=== PATIENT | male | born 1995 | race Caucasian/White ===

== ENCOUNTER 2023-07-15 15:54 | Emergency (ER) | payer BC, SELFPAY ==
--- NOTE | 2023-07-15 16:15 | ER ---
Nurse's Notes [facility] Name: Darvin Arriola III Age: 28 yrs Sex: Male : 1995 Arrival Date: 07/15/2023 Time: 15:54 Bed 12 Private MD: Diagnosis: Low back pain Presentation: 07/15 16:10 Chief complaint: Patient states: back pain since Friday evening. Coronavirus screen: At iw this time, the client does not indicate any symptoms associated with coronavirus-19. Ebola Screen: Patient negative for fever greater than or equal to 101.5 degrees Fahrenheit, and additional compatible Ebola Virus Disease symptoms Patient denies exposure to infectious person. Patient denies travel to an Ebola-affected area in the 21 days before illness onset. No symptoms or risks identified at this time. Initial Sepsis Screen: Does the patient meet any 2 criteria? No. Patient's initial sepsis screen is negative. Does the patient have a suspected source of infection? No. Patient's initial sepsis screen is negative. Risk Assessment: Do you want to hurt yourself or someone else? Patient reports no desire to harm self or others. Onset of symptoms was July 13, 2023. 16:10 Method Of Arrival: Ambulatory iw 16:10 Acuity: RICHARD 4 iw Historical: - Allergies: 16:13 PENICILLINS; iw 16:13 Augmentin; iw - PMHx: 16:14 Depressive disorder; iw - Immunization history:: Adult Immunizations unknown. - Social history:: Smoking status: unknown. Assessment: 17:00 General: Appears in no apparent distress. uncomfortable, Behavior is calm, cooperative, jl7 appropriate for age. Pain: Complains of pain in lumbar area. Neuro: Level of Consciousness is awake, alert, obeys commands, Oriented to person, place, time, situation, Gait is steady. Cardiovascular: Patient's skin is warm and dry. Respiratory: Airway is patent Respiratory effort is even, unlabored, Respiratory pattern is regular, symmetrical. Derm: Skin is pink, warm \T\ dry. Musculoskeletal: Swelling absent. Vital Signs: 16:12 BP 125 / 85; Pulse 86; Resp 16; Temp 98.4; Pulse Ox 97% on R/A; iw 17:07 Weight 99.79 kg; jl7 ED Course: 15:56 Patient arrived in ED. rg4 15:59 Yolis Price FNP-C [facility]. kb 15:59 Stevie Morris DO is Attending Physician. kb 16:12 Triage completed. iw 16:12 Arm band placed on. iw 17:00 Patient has correct armband on for positive identification. jl7 17:07 Jacek Buenrostro, RN is Primary Nurse. jl7 17:19 No provider procedures requiring assistance completed. Patient did not have IV access jl7 during this emergency room visit. Administered Medications: 17:15 Drug: Dexamethasone IM 10 mg Route: IM; Site: left deltoid; jl7 17:18 Follow up: Response: Medication administered at discharge. jl7 17:15 Drug: Ketorolac IM 30 mg Route: IM; Site: right deltoid; jl7 17:18 Follow up: Response: Medication administered at discharge. jl7 17:15 Drug: [place] PO 10 mg-325 mg 1 tabs Route: PO; jl7 17:18 Follow up: Response: Medication administered at discharge. jl7 Medication: 17:00 VIS not applicable for this client. jl7 Outcome: 16:15 Discharge ordered by MD. kb 17:19 Discharged to home ambulatory. jl7 17:19 Condition: stable 17:19 Discharge instructions given to patient, Instructed on discharge instructions, follow up and referral plans. medication usage, Demonstrated understanding of instructions, follow-up care, medications, Prescriptions given X 3. 17:19 Patient left the ED. jl7 Signatures: Yolis Price FNP-C FNP-Janice West, RN Fina Bowser rg4 Jacek Buenrostro, MARITA RN jl7
--- NOTE | 2023-07-15 16:16 | EDPHYS ---
Physician Documentation [facility] Name: Darvin Arriola III Age: 28 yrs Sex: Male : 1995 Arrival Date: 07/15/2023 Time: 15:54 Bed 12 Private MD: ED Physician Stevie Morris HPI: 07/15 16:14 This 28 yrs old Male presents to ER via Ambulatory with complaints of Back Pain. kb 16:10 Low back pain for 3 days after moving. States he was moving furniture and felt the pain kb come on when going up the stairs. Reports pain is worse with changing positions. Denies numbness or tingling. Reports pain is to center of lower back, lumbar area, and radiates to right buttock and posterior thigh. . 16:14 The patient presents with pain that is acute. The symptoms are located in the low back. kb Onset: The symptoms/episode began/occurred 3 day(s) ago. The pain radiates. Associated signs and symptoms: Pertinent positives:. The problem was sustained when lifting. Modifying factors: The patient symptoms are alleviated by nothing, the patient symptoms are aggravated by any movement. Severity of symptoms: At their worst the symptoms were moderate, in the emergency department the symptoms are unchanged. The patient has not experienced similar symptoms in the past. The patient has not recently seen a physician. Historical: - Allergies: 16:13 PENICILLINS; iw 16:13 Augmentin; iw - PMHx: 16:14 Depressive disorder; iw - Immunization history:: Adult Immunizations unknown. - Social history:: Smoking status: unknown. ROS: 16:10 Constitutional: Negative for fever, chills, and weight loss. kb 16:10 Back: Positive for pain with movement. 16:10 All other systems are negative. Exam: 16:10 Constitutional: This is a well developed, well nourished patient who is awake, alert, kb and in no acute distress. Head/Face: Normocephalic, atraumatic. ENT: Moist Mucous membranes Cardiovascular: Regular rate and rhythm with a normal S1 and S2. No gallops, murmurs, or rubs. No pulse deficits. Respiratory: Respirations even and unlabored. No increased work of breathing. Talking in full sentences Abdomen/GI: Soft, non-tender. No distention Skin: Warm, dry with normal turgor. Normal color. MS/ Extremity: Pulses equal, no cyanosis. Neurovascular intact. Full, normal range of motion. Neuro: Awake and alert, GCS 15, oriented to person, place, time, and situation. Moves all extremities. Normal gait. 16:10 Back: pain, that is moderate, of the lumbar area, ROM is painful, normal spinal alignment noted, CVA tenderness, is absent. Vital Signs: 16:12 BP 125 / 85; Pulse 86; Resp 16; Temp 98.4; Pulse Ox 97% on R/A; iw 17:07 Weight 99.79 kg; jl7 MDM: 16:10 Patient medically screened. kb 16:10 Differential diagnosis: ruptured disc, sprain, vertebral fracture, hernitated disc. kb Data reviewed: vital signs, nurses notes. Test considered but Not performed: X-ray: x-ray lumbar spine considered, but pt had no traumatic injury. Plan of care would not change on outcome of x-ray. Counseling: I had a detailed discussion with the patient and/or guardian regarding the historical points, exam findings, and any diagnostic results supporting the discharge/admit diagnosis, the need for outpatient follow up, a family practitioner, to return to the emergency department if symptoms worsen or persist or if there are any questions or concerns that arise at home. Administered Medications: 17:15 Drug: Dexamethasone IM 10 mg Route: IM; Site: left deltoid; jl7 17:18 Follow up: Response: Medication administered at discharge. jl7 17:15 Drug: Ketorolac IM 30 mg Route: IM; Site: right deltoid; jl7 17:18 Follow up: Response: Medication administered at discharge. jl7 17:15 Drug: [place] PO 10 mg-325 mg 1 tabs Route: PO; jl7 17:18 Follow up: Response: Medication administered at discharge. jl7 Disposition: 17:41 Co-signature as Attending Physician, Stevie LACKEY was immediately available on-site ms3 in the Emergency Department for consultation in the care of the patient. Disposition Summary: 07/15/23 16:15 Discharge Ordered Location: Home kb Condition: Stable kb Diagnosis - Low back pain kb Followup: kb - With: Emergency Department - When: As needed - Reason: Worsening of condition Followup: kb - With: Private Physician - When: 2 - 3 days - Reason: Recheck today's complaints, Continuance of care, Re-evaluation by your physician Discharge Instructions: - Discharge Summary Sheet kb - Acute Back Pain, Adult kb - Musculoskeletal Pain kb Forms: - Medication Reconciliation Form kb - Thank You Letter kb - Antibiotic Education kb - Prescription Opioid Use kb - Patient Portal Instructions kb - Leadership Thank You Letter kb - Work release form jl7 Prescriptions: - Ibuprofen 800 mg Oral Tablet - take 1 tablet by ORAL route every 8 hours As needed take with food; 30 tablet; kb Refills: 0, Product Selection Permitted - Prednisone 20 mg Oral Tablet - take 1 tablet by ORAL route once daily for 5 days; 5 tablet; Refills: 0, kb Product Selection Permitted - orphenadrine citrate 100 mg Oral Tablet Sustained Release - take 1 tablet by ORAL route 2 times per day As needed; 20 tablet; Refills: 0, kb Product Selection Permitted Signatures: Yolis Price, [employer] DEVELOPER-Janice West RN RN iw Jacek Buenrostro RN RN jl7 Stevie Morris DO DO ms3
[2023-07-15] MEDS ORDERED: HYDROCODONE/APAP 10/325 TAB ONE (17:19)
[2023-07-15] MEDS ORDERED: dexAMETHasone 10 MG/ML VIAL ONE (17:19)
[2023-07-15] MEDS ORDERED: KETOROLAC 30 MG/ML INJ ONE (17:19)
[2023-07-15 17:39] VITALS: BP 125/85; TEMP 98.4; O2SAT 97
== END 2023-07-15 17:19 | disposition home or self-care (01) ==
LOC: ER 15:54
DX: M54.50 Low back pain, unspecified (principal); Z88.0 Allergy status to penicillin; Z88.1 Allergy status to other antibiotic agents
CPT/HCPCS: J1100

== ENCOUNTER 2025-01-17 06:16 | Emergency (ER) | payer BC, SELFPAY ==
[2025-01-17] MEDS ORDERED: ONDANSETRON 4 MG/2 ML VIAL ONE (06:53)
[2025-01-17] MEDS ORDERED: NA CHLORIDE 0.9% 1,000 ML ONE (06:54)
[2025-01-17 07:07] LABS: Absolute Basophils 0.1 K/uL (0-0.5); Absolute Eosinophils 0.3 K/uL (0-0.5); Absolute Lymphocytes (CBC) 3.7 K/uL (0.7-4.9); Absolute Neutrophil 5.6 K/uL (1.8-8.0); Basophils % 0.7 % (0-1.3); Hematocrit 45.4 % (39.6-49.0); Hemoglobin 15.5 g/dL (13.6-17.9); Lymphocytes % 34.4 % (15.3-44.8); MCH 29.1 pg (27.0-35.0); MCHC 34.1 g/dL (32.0-36.0); MCV 85.3 fL (80-100); MPV 7.7 fL (7.6-11.3); Monocytes % 9.6 % (3.3-12.3); Neutrophils % 52.3 % (41.7-73.7); Nucleated Red Blood Cells % 0.1 % (0-0); Platelets 371 thou/uL (152-406); RBC Red Blood Cell Count 5.33 M/uL (4.33-5.43); Red Cell Distribution Width 13.4 % (12.1-15.2)
[2025-01-17 07:29] LABS: Albumin 3.7 g/dL (3.4-5.0); Anion Gap 7.6 mEq/L (5.0-15.0); Bilirubin Total 0.4 mg/dL (0.2-1.0); Globulin 3.8 g/dL (2.3-3.5); Potassium 3.6 mEq/L (3.5-5.1); Protein, Total 7.5 g/dL (6.4-8.2)
--- NOTE | 2025-01-17 07:44 | RAD REPORT ---
EXAMINATION: CT ABDOMEN AND PELVIS WITH CONTRAST CLINICAL INDICATION: ABD PAIN TECHNIQUE: CT abdomen and pelvis was performed, after the administration of IV contrast, as per [facility] protocol. Axial, sagittal and coronal reconstructions were obtained. One or more of the following dose reduction techniques were used: Automated exposure control, adjustment of the mA and k V according to patient size, and iterative reconstruction. Unless otherwise specified, incidental findings do not require dedicated imaging follow-up. COMPARISON: No prior exam. FINDINGS: LOWER CHEST: The visualized lung bases are clear. LIVER: Normal in size and contour. No focal lesion. Grossly unremarkable gallbladder. SPLEEN: Normal size. No focal lesion. PANCREAS: No mass, ductal dilation, or magdaleno-pancreatic fluid. ADRENALS: Normal; no mass. KIDNEYS: Normal size and contour. No hydronephrosis. GASTROINTESTINAL TRACT: No evidence of free air, significant intra-abdominal free fluid, bowel obstru ction or abscess. APPENDIX: Normal appendix. LYMPH NODES: No lymphadenopathy. MUSCULOSKELETAL: Prominent lower lumbar posterior disc bulging. ADDITIONAL FINDINGS: None. IMPRESSION: No acute or concerning abnormalities seen in the abdomen or pelvis.
--- NOTE | 2025-01-17 08:37 | EDPHYS ---
Physician Documentation [facility] Name: Darvin Arriola III Age: 29 yrs Sex: Male : 1995 Arrival Date: 01/17/2025 Time: 06:16 Bed 6 Private MD: ED Physician Stevie Morris HPI: 01/17 06:37 This 29 yrs old Male presents to ER via Ambulatory with complaints of sp3 Nausea/Vomiting/Diarrhea, General Weakness, Abdominal Pain. 06:37 29-year-old male with history of depression now presents to the ED with chief complaint sp3 nausea, vomiting, diarrhea abdominal cramping for the last 24 hours. He denies any headache, fever, URI symptoms, chest pain, shortness of breath, back pain, flank pain, dysuria, known sick contacts, travel history, or any other signs or symptoms on ROS at this time. He denies any blood or mucus in his emesis or stools.. Historical: - Allergies: 06:28 Augmentin; bm8 06:28 PENICILLINS; bm8 - Home Meds: 06:28 None [Active]; bm8 - PMHx: 06:28 depressive disorder; bm8 - PSHx: 06:28 None; bm8 - Immunization history:: Adult Immunizations up to date. - Infectious Disease History:: Denies. - Social history:: Smoking status: Reported history of juuling and/or vaping. ROS: 06:38 Constitutional: Negative for fever, chills, and weight loss, Eyes: Negative for injury, sp3 pain, redness, and discharge, ENT: Negative for injury, pain, and discharge, Neck: Negative for injury, pain, and swelling, Cardiovascular: Negative for chest pain, palpitations, and edema, Respiratory: Negative for shortness of breath, cough, wheezing, and pleuritic chest pain, Back: Negative for injury and pain, : Negative for injury, bleeding, discharge, and swelling, MS/Extremity: Negative for injury and deformity, Skin: Negative for injury, rash, and discoloration, Neuro: Negative for headache, weakness, numbness, tingling, and seizure, 06:38 All other systems are negative, Exam: 06:38 Constitutional: This is a well developed, well nourished patient who is awake, alert, sp3 and in no acute distress. Head/Face: Normocephalic, atraumatic. Eyes: Pupils equal round and reactive to light, extra-ocular motions intact. Lids and lashes normal. Conjunctiva and sclera are non-icteric and not injected. Cornea within normal limits. Periorbital areas with no swelling, redness, or edema. Neck: Trachea midline, no thyromegaly or masses palpated, and no cervical lymphadenopathy. Supple, full range of motion without nuchal rigidity, or vertebral point tenderness. No Meningismus. Chest/axilla: Normal chest wall appearance and motion. Nontender with no deformity. No lesions are appreciated. Cardiovascular: Regular rate and rhythm with a normal S1 and S2. No gallops, murmurs, or rubs. Normal PMI, no JVD. No pulse deficits. Respiratory: Lungs have equal breath sounds bilaterally, clear to auscultation and percussion. No rales, rhonchi or wheezes noted. No increased work of breathing, no retractions or nasal flaring. Back: No spinal tenderness. No costovertebral tenderness. Full range of motion. Skin: Warm, dry with normal turgor. Normal color with no rashes, no lesions, and no evidence of cellulitis. MS/ Extremity: Pulses equal, no cyanosis. Neurovascular intact. Full, normal range of motion. Neuro: Awake and alert, GCS 15, oriented to person, place, time, and situation. Cranial nerves II-XII grossly intact. Motor strength 5/5 in all extremities. Sensory grossly intact. Cerebellar exam normal. Normal gait. Psych: Awake, alert, with orientation to person, place and time. Behavior, mood, and affect are within normal limits. 06:38 Abdomen/GI: Diffuse abdominal pain to palpation mild in nature. No peritoneal signs, rebound or guarding., Vital Signs: 06:27 BP 138 / 96; Pulse 69; Resp 18; Temp 98.2; Pulse Ox 97% ; Weight 90.72 kg; Height 6 ft. bm8 0 in. ; Pain 0/10; 06:57 BP 133 / 97; Pulse 67; Resp 18; Temp 98.2; Pulse Ox 97% ; Pain 3/10; bm8 08:19 BP 111 / 73; Pulse 63; Resp 14; Pulse Ox 99% on R/A; Pain 0/10; ss 06:27 Body Mass Index 27.12 (90.72 kg, 182.88 cm) bm8 06:27 Pain Scale: Adult bm8 06:57 Pain Scale: Adult bm8 08:19 Pain Scale: Adult ss Valders Coma Score: 06:30 Eye Response: spontaneous(4). Motor Response: obeys commands(6). Verbal Response: bm8 oriented(5). Total: 15. 06:57 Eye Response: spontaneous(4). Motor Response: obeys commands(6). Verbal Response: bm8 oriented(5). Total: 15. MDM: 06:33 Medical Screening Exam initiated sp3 06:38 Data reviewed: vital signs, nurses notes, lab test result(s), radiologic studies. ED sp3 course: 29-year-old male with nausea, vomiting, diarrhea and abdominal pain. Differential diagnosis broad includes foodborne illness, gastroenteritis, gastritis, biliary pathology, pancreatitis, colitis, among others. I am not highly suspicious for or aortic pathology. Workup will include CT scan of the abdomen pelvis, general labs and UA with treatments including IV fluids and ondansetron IV. Patient declined pain medication at this time. Patient will be signed out to daytime physician for reevaluation and final disposition.. 07:00 Transition of care: Care assumed from Nelly Carey MD. ms3 01/17 06:37 Order name: CBC with Diff; Complete Time: 08:28 sp3 01/17 06:37 Order name: CMP; Complete Time: 08:28 sp3 01/17 06:37 Order name: Lipase; Complete Time: 08:28 sp3 01/17 06:37 Order name: CT Abd/Pelvis - IV Contrast Only; Complete Time: 08:28 sp3 01/17 06:37 Order name: IV Saline Lock; Complete Time: 06:57 sp3 01/17 06:37 Order name: Labs collected and sent; Complete Time: 06:57 sp3 Administered Medications: 06:57 Drug: Ondansetron IVP 4 mg IVP once; over 2 minutes Route: IVP; Site: right antecubital;bm8 08:18 Follow up: Response: No adverse reaction; Nausea is decreased ss 06:57 Drug: NS 0.9% IV 1000 ml IV at 1 bolus Per protocol; to be given as a bolus over 60 bm8 minutes Route: IV; Rate: 1 bolus; Site: right antecubital; 08:18 Follow up: IV Status: Completed infusion; IV Intake: 1000ml ss Disposition Summary: 01/17/25 08:37 Discharge Ordered Notes: Location: Home ms3 Condition: Stable ms3 Diagnosis - Nausea with vomiting, unspecified ms3 - Diarrhea, unspecified ms3 Followup: ms3 - With: Favio Carey DO - When: 2 - 3 days - Reason: Recheck today's complaints Discharge Instructions: - Discharge Summary Sheet ms3 - Food Choices to Help Relieve Diarrhea, Adult ms3 - Diarrhea, Adult ms3 - Nausea and Vomiting, Adult ms3 Forms: - Work release form bd - Medication Reconciliation Form ms3 - Antibiotic Education ms3 - Prescription Opioid Use ms3 - Patient Portal Instructions ms3 - Leadership Thank You Letter ms3 Prescriptions: - ondansetron 4 mg Oral Tablet,disintegrating - take 1 tablet ORAL route every 8 hours for 5 days; 15 tablet; Refills: 0, ms3 Product Selection Permitted Signatures: Dispatcher [employer] EDStevie Walton DO DO ms3 Nelly Carey MD MD sp3 Mp Lagunas, RN RN bm8 Jacklyn Caraballo RN ss Corrections: (The following items were deleted from the chart) 06:37 06:37 CBC+H.LAB.BRZ ordered. EDMS EDMS 06:37 06:37 COMPREHENSIVE METABOLIC PANEL+C.LAB.BRZ ordered. EDMS EDMS 06:37 06:37 LIPASE+C.LAB.BRZ ordered. EDMS EDMS 06:37 06:37 Urinalysis+U.LAB.BRZ ordered. EDMS EDMS 06:37 06:37 Abdomen Pelvis W Con+CT.RAD.BRZ ordered. EDMS EDMS
--- NOTE | 2025-01-17 08:37 | ER ---
Nurse's Notes [facility] Name: Darvin Arriola III Age: 29 yrs Sex: Male : 1995 Arrival Date: 01/17/2025 Time: 06:16 Bed 6 Private MD: Diagnosis: Nausea with vomiting, unspecified;Diarrhea, unspecified Presentation: 01/17 06:27 Chief complaint: Patient states: i STARTED HAVING N/V WITH CHILLS YESTERDAY. bm8 Coronavirus screen: At this time, the client does not indicate any symptoms associated with coronavirus-19. Ebola Screen: Patient negative for fever greater than or equal to 101.5 degrees Fahrenheit, and additional compatible Ebola Virus Disease symptoms Patient denies exposure to infectious person. Patient denies travel to an Ebola-affected area in the 21 days before illness onset. No symptoms or risks identified at this time. Initial Sepsis Screen: Does the patient meet any 2 criteria? No. Patient's initial sepsis screen is negative. Does the patient have a suspected source of infection? No. Patient's initial sepsis screen is negative. Risk Assessment: Do you want to hurt yourself or someone else? Patient reports no desire to harm self or others. Onset of symptoms was January 16, 2025 at 08:00. 06:27 Method Of Arrival: Ambulatory bm8 06:27 Acuity: RICHARD 3 bm8 Triage Assessment: 06:28 General: Appears in no apparent distress. comfortable, Behavior is calm, cooperative, bm8 appropriate for age. Pain: Denies pain. EENT: No deficits noted. No signs and/or symptoms were reported regarding the EENT system. Neuro: No deficits noted. Level of Consciousness is awake, alert, obeys commands, Oriented to person, place, time, situation, Appropriate for age. Cardiovascular: Heart tones S1 S2 present Capillary refill < 3 seconds in bilateral fingers Patient's skin is warm and dry. Respiratory: Airway is patent Respiratory effort is even, unlabored, Respiratory pattern is regular, symmetrical, Breath sounds are clear bilaterally. GI: Abdomen is flat, non-distended, Bowel sounds present X 4 quads. Abd is soft and non tender Reports nausea, vomiting, since YESTERDAY Patient currently denies pain. : No signs and/or symptoms were reported regarding the genitourinary system. Derm: No signs and/or symptoms reported regarding the dermatologic system. Musculoskeletal: No signs and/or symptoms reported regarding the musculoskeletal system. Historical: - Allergies: 06:28 Augmentin; bm8 06:28 PENICILLINS; bm8 - Home Meds: :28 None [Active]; bm8 - PMHx: 06:28 depressive disorder; bm8 - PSHx: 06:28 None; bm8 - Immunization history:: Adult Immunizations up to date. - Infectious Disease History:: Denies. - Social history:: Smoking status: Reported history of juuling and/or vaping. Screenin:30 [facility] ED Fall Risk Assessment (Adult) History of falling in the last 3 months, bm8 including since admission No falls in past 3 months (0 pts) Confusion or Disorientation No (0 pts) Intoxicated or Sedated No (0 pts) Impaired Gait No (0 pts) Mobility Assist Device Used No (0 pt) Altered Elimination No (0 pt) Score/Fall Risk Level 0 - 2 = Low Risk Oriented to surroundings, Maintained a safe environment, Educated pt \T\ family on fall prevention, incl call for assistance when getting out of bed, Assessed \T\ reinforced patient's understanding of fall precautions, Hourly rounding (assess needs \T\ fall precautionary measures) done, Used ambulatory aids as needed (educated on \T\ assisted with), Used gait belt as appropriate. Abuse screen: Denies threats or abuse. Nutritional screening: No deficits noted. Tuberculosis screening: No symptoms or risk factors identified. Assessment: 06:30 Reassessment: SEE TRIAGE NOTE. bm8 07:39 Reassessment: Pt back from CT at this time. ss 08:18 Reassessment: Patient appears in no apparent distress at this time. Patient and/or ss family updated on plan of care and expected duration. Pain level reassessed. Patient is alert, oriented x 3, equal unlabored respirations, skin warm/dry/pink. PT ambulated to restroom with steady gait. Awaiting disposition. 08:48 Reassessment: Patient appears in no apparent distress at this time. Patient and/or ld1 family updated on plan of care and expected duration. Pain level reassessed. Patient is alert, oriented x 3, equal unlabored respirations, skin warm/dry/pink. Vital Signs: 06:27 BP 138 / 96; Pulse 69; Resp 18; Temp 98.2; Pulse Ox 97% ; Weight 90.72 kg; Height 6 ft. bm8 0 in. ; Pain 0/10; 06:57 BP 133 / 97; Pulse 67; Resp 18; Temp 98.2; Pulse Ox 97% ; Pain 3/10; bm8 08:19 BP 111 / 73; Pulse 63; Resp 14; Pulse Ox 99% on R/A; Pain 0/10; ss 06:27 Body Mass Index 27.12 (90.72 kg, 182.88 cm) bm8 06:27 Pain Scale: Adult bm8 06:57 Pain Scale: Adult bm8 08:19 Pain Scale: Adult ss Main Coma Score: 06:30 Eye Response: spontaneous(4). Motor Response: obeys commands(6). Verbal Response: bm8 oriented(5). Total: 15. 06:57 Eye Response: spontaneous(4). Motor Response: obeys commands(6). Verbal Response: bm8 oriented(5). Total: 15. ED Course: 06:18 Patient arrived in ED. gm2 06:28 Triage completed. bm8 06:28 Arm band placed on right wrist. bm8 06:30 Patient has correct armband on for positive identification. Bed in low position. Client bm8 placed on continuous cardiac and pulse oximetry monitoring. NIBP monitoring applied. Pulse ox on. NIBP on. Door closed. Noise minimized. Verbal reassurance given. Head of bed elevated. 06:33 Nelly Carey MD is Attending Physician. sp3 06:57 No provider procedures requiring assistance completed. Initial lab(s) drawn, by nvmarco antonio sent to lab. Inserted saline lock: 20 gauge in right antecubital area, using aseptic technique. Blood collected. Flushed with 10 mL NS. Patient maintains SpO2 saturation greater than 95% on room air. 07:33 Attending Physician role handed off by Nelly Carey MD ms3 07:33 Stevie Morris DO is Attending Physician. ms3 07:36 CT Abd/Pelvis - IV Contrast Only In Process Unspecified. EDMS 07:39 Jacklyn Caraballo, RN is Primary Nurse. ss 08:37 Favio Carey DO is Referral Physician. ms3 08:48 IV discontinued, intact, bleeding controlled, No redness/swelling at site. ld1 Administered Medications: 06:57 Drug: Ondansetron IVP 4 mg IVP once; over 2 minutes Route: IVP; Site: right antecubital;bm8 08:18 Follow up: Response: No adverse reaction; Nausea is decreased ss 06:57 Drug: NS 0.9% IV 1000 ml IV at 1 bolus Per protocol; to be given as a bolus over 60 bm8 minutes Route: IV; Rate: 1 bolus; Site: right antecubital; 08:18 Follow up: IV Status: Completed infusion; IV Intake: 1000ml ss Medication: 06:30 VIS not applicable for this client. bm8 Intake: 08:18 IV: 1000ml; Total: 1000ml. ss Outcome: 08:37 Discharge ordered by MD. ms3 08:48 Discharged to home ambulatory, ld1 08:48 Condition: stable 08:48 Discharge instructions given to patient, family, Instructed on discharge instructions, follow up and referral plans. medication usage, Demonstrated understanding of instructions, follow-up care, medications, Prescriptions given X 1, 08:49 Patient left the ED. ld1 Signatures: Dispatcher [employer] EDMS Jacklyn Caraballo RN RN ss Stevie Morris DO DO ms3 Betina Morris RN RN ld1 Nelly Carey MD MD 3 Grecia Leroy 2 Mp Lagunas, RN RN bm8
[2025-01-17 09:18] VITALS: TEMP 98.2
[2025-01-17 09:20] VITALS: BP 111/73; O2SAT 99
== END 2025-01-17 08:49 | disposition home or self-care (01) ==
LOC: ER 06:16
DX: R11.2 Nausea with vomiting, unspecified (principal); R19.7 Diarrhea, unspecified
CPT/HCPCS: 36415; 74177; 80053; 83690; 85025; 96361; 96374; 99284; J2405; J7030; Q9967

== ENCOUNTER 2025-08-31 11:53 | Emergency (ER) | payer SELFPAY ==
[2025-08-31] MEDS ORDERED: CYCLOBENZAPRINE 10 MG TAB ONE (12:32)
--- NOTE | 2025-08-31 13:21 | RAD REPORT ---
EXAMINATION: XR Ankle Left 3 View CLINICAL INDICATION: Male, 30 years old. [facility] Bed Name: [facility] TECHNIQUE: 3 view radiographs of the left ankle were obtained. COMPARISON: No prior exam. FINDINGS: No acute bone or joint abnormality seen. No focal suspicious osseous lesion. Mild enthesopa thy at the Achilles tendon attachment. IMPRESSION: No acute or significant abnormalities.
--- NOTE | 2025-08-31 13:30 | ER ---
Nurse's Notes [facility] Name: Darvin Arriola III Age: 30 yrs Sex: Male : 1995 Arrival Date: 08/31/2025 Time: 11:53 Bed IW1 Private MD: Diagnosis: Pain in left ankle and joints of left foot;Myalgia Presentation: 08/31 12:14 Chief complaint: Patient states: Pain all over from playing [place] the beach yesterday. L ll1 ankle pain with walking. Coronavirus screen: Client denies travel out of the [place] in the last 14 days. At this time, the client does not indicate any symptoms associated with coronavirus-19. Ebola Screen: Patient denies travel to an Ebola-affected area in the 21 days before illness onset. Initial Sepsis Screen: Does the patient meet any 2 criteria? No. Patient's initial sepsis screen is negative. Does the patient have a suspected source of infection? No. Patient's initial sepsis screen is negative. Risk Assessment: Do you want to hurt yourself or someone else? Patient reports no desire to harm self or others. Onset of symptoms was August 31, 2025. 12:14 Method Of Arrival: Ambulatory ll1 12:14 Acuity: RICHARD 4 ll1 Historical: - Allergies: 12:15 Augmentin; ll1 12:15 PENICILLINS; ll1 - PMHx: 12:15 depressive disorder; ll1 - PSHx: 12:15 None; ll1 - Immunization history:: Adult Immunizations up to date. - Infectious Disease History:: Denies. - Social history:: Smoking status: Patient denies any tobacco usage or history of. Screenin:42 [facility] ED Fall Risk Assessment (Adult) History of falling in the last 3 months, dd2 including since admission No falls in past 3 months (0 pts) Confusion or Disorientation No (0 pts) Intoxicated or Sedated No (0 pts) Impaired Gait No (0 pts) Mobility Assist Device Used No (0 pt) Altered Elimination No (0 pt) Score/Fall Risk Level 0 - 2 = Low Risk Oriented to surroundings, Maintained a safe environment, Educated pt \T\ family on fall prevention, incl call for assistance when getting out of bed, Assessed \T\ reinforced patient's understanding of fall precautions, Hourly rounding (assess needs \T\ fall precautionary measures) done. Abuse screen: Denies threats or abuse. Denies injuries from another. Nutritional screening: No deficits noted. Tuberculosis screening: No symptoms or risk factors identified. Assessment: 13:42 General: Appears in no apparent distress. uncomfortable, Behavior is calm, cooperative, dd2 appropriate for age. Pain: Complains of pain in GENERALIZED, LT ANKLE. Neuro: No deficits noted. Cardiovascular: No deficits noted. Respiratory: No deficits noted. GI: No deficits noted. : No deficits noted. No signs and/or symptoms were reported regarding the genitourinary system. EENT: No deficits noted. No signs and/or symptoms were reported regarding the EENT system. Derm: No deficits noted. No signs and/or symptoms reported regarding the dermatologic system. Musculoskeletal: Circulation, motion, and sensation intact. Range of motion: intact in all extremities, Reports pain in GENERALIZED, LT ANKLE. Vital Signs: 12:14 BP 132 / 89; Pulse 81; Resp 17; Pulse Ox 99% ; Weight 99.79 kg; Height 6 ft. 0 in. ; ll1 Pain 8/10; 13:44 BP 134 / 84; Pulse 76; Resp 16; Pulse Ox 99% on R/A; dd2 12:14 Body Mass Index 29.84 (99.79 kg, 182.88 cm) ll1 12:14 Pain Scale: Adult ll1 ED Course: 11:56 Patient arrived in ED. al6 12:04 Yolis Price FNP-C is [facility]. kb 12:04 Peter Andre MD is Attending Physician. kb 12:15 Triage completed. ll1 12:15 Arm band placed on. ll1 13:17 Ankle Left 3 View XRAY In Process Unspecified. EDMS 13:42 Patient has correct armband on for positive identification. Provided Education on: D/C dd2 EDUCATION. 13:42 No provider procedures requiring assistance completed. Patient did not have IV access dd2 during this emergency room visit. Administered Medications: 12:35 Drug: Cyclobenzaprine PO 10 mg PO once Route: PO; dd2 13:06 Follow up: Response: No adverse reaction dd2 Medication: 13:42 VIS not applicable for this client. dd2 Outcome: 13:29 Discharge ordered by . chong 13:42 Discharged to home ambulatory, dd2 13:42 Condition: stable 13:42 Discharge instructions given to patient, Instructed on discharge instructions, follow up and referral plans. Demonstrated understanding of instructions, follow-up care, 13:44 Patient left the ED. dd2 Signatures: Dispatcher [employer] EDYolis Matias, JAQUELINE CAVANAUGH-Juan Carlos Salazar RN RN ll1 NEDRA RG RN RN dd2 Mell Lopez6 Corrections: (The following items were deleted from the chart) 12:15 12:14 Chief complaint: Patient states: Pain all over from playing at the beach ll1 yesterday. ll1
--- NOTE | 2025-08-31 13:30 | EDPHYS ---
Physician Documentation [facility] Name: Darvin Arriola III Age: 30 yrs Sex: Male : 1995 Arrival Date: 08/31/2025 Time: 11:53 Bed IW1 Private MD: ED Physician Peter Andre HPI: 08/31 14:19 This 30 yrs old Male presents to ER via Ambulatory with complaints of Pain All Over. kb 14:19 Pt is a 30 year old male who presents for joint pain after playing with child at the [employer] yesterday. STates he hasn't been active like that in a long time so his body isn't used to it. States he called into work today and was told he needed a work note to return. . Historical: - Allergies: 12:15 Augmentin; ll1 12:15 PENICILLINS; ll1 - PMHx: 12:15 depressive disorder; ll1 - PSHx: 12:15 None; ll1 - Immunization history:: Adult Immunizations up to date. - Infectious Disease History:: Denies. - Social history:: Smoking status: Patient denies any tobacco usage or history of. ROS: 14:03 Constitutional: As per HPI kb Exam: 14:03 Constitutional: This is a well developed, well nourished patient who is awake, alert, kb and in no acute distress. Head/Face: Normocephalic, atraumatic. ENT: Moist Mucous membranes Cardiovascular: Regular rate Respiratory: Respirations even and unlabored. No increased work of breathing. Talking in full sentences Abdomen/GI: Soft, non-tender. No distention Skin: Warm, dry with normal turgor. Normal color. Neuro: Awake and alert, GCS 15, oriented to person, place, time, and situation. 14:03 Musculoskeletal/extremity: Extremities: grossly normal except: noted in the left lateral ankle: pain, tenderness, ROM: intact in all extremities, Circulation is intact in all extremities. Sensation intact. Weight bearing: able to fully bear weight, Vital Signs: 12:14 BP 132 / 89; Pulse 81; Resp 17; Pulse Ox 99% ; Weight 99.79 kg; Height 6 ft. 0 in. ; ll1 Pain 8/10; 13:44 BP 134 / 84; Pulse 76; Resp 16; Pulse Ox 99% on R/A; dd2 12:14 Body Mass Index 29.84 (99.79 kg, 182.88 cm) ll1 12:14 Pain Scale: Adult ll1 MDM: 12:04 Medical Screening Exam initiated kb 14:17 Differential diagnosis: fracture, myalgia, contusion, sprain. Data reviewed: vital kb signs, nurses notes. Historians other than the Patient: Spouse/Significant Other: significant other. Counseling: I had a detailed discussion with the patient and/or guardian regarding the historical points, exam findings, and any diagnostic results supporting the discharge/admit diagnosis, radiology results, the need for outpatient follow up, a family practitioner, to return to the emergency department if symptoms worsen or persist or if there are any questions or concerns that arise at home. 08/31 12:16 Order name: Ankle Left 3 View XRAY; Complete Time: 13:27 kb Administered Medications: 12:35 Drug: Cyclobenzaprine PO 10 mg PO once Route: PO; dd2 13:06 Follow up: Response: No adverse reaction dd2 Disposition: 09/01 07:34 Co-signature as Attending Physician, Peter Andre MD I agree with the assessment and rona plan of care. Disposition Summary: 08/31/25 13:29 Discharge Ordered Notes: Location: Home kb Condition: Stable kb Diagnosis - Pain in left ankle and joints of left foot kb - Myalgia kb Followup: kb - With: Emergency Department - When: As needed - Reason: Worsening of condition Followup: kb - With: Private Physician - When: 2 - 3 days - Reason: Recheck today's complaints, Continuance of care, Re-evaluation by your physician Discharge Instructions: - Discharge Summary Sheet kb - Musculoskeletal Pain kb - Ankle Sprain, [id number] kb Forms: - Work release form kb - Medication Reconciliation Form kb - Antibiotic Education kb - Prescription Opioid Use kb - Patient Portal Instructions kb - Leadership Thank You Letter kb Signatures: Dispatcher [employer] Yolis Milan, INSTRUCTOR PRIVATE-C INSTRUCTOR PRIVATE-Peter Smith MD MD cha Lewis, Lynsay, MARITA RN ll1 NEDRA RG RN RN dd2
[2025-08-31 13:53] VITALS: O2SAT 99
[2025-08-31 13:54] VITALS: BP 134/84
== END 2025-08-31 13:44 | disposition home or self-care (01) ==
LOC: ER 11:53
DX: M25.572 Pain in left ankle and joints of left foot (principal); M79.10 Myalgia, unspecified site
CPT/HCPCS: 99283